=== PATIENT | male | born 1955 | race Caucasian/White ===

== ENCOUNTER → 2019-08-03 | Outpatient (CLI) | payer OTHER ==
[~2019-08-03] MED LIST: ABAT250V; AMIT50 PO; ASPI81CH; CALMAGZIN; CEPH500 PO; CIPR500; CIPR500 PO; CYAN1000 PO; DOCU100 PO; GABA300 PO; GLIM2 PO; GLUCOSAMINE/CHOND; Glucosamine-Ch1 EAC2 PO; Hytrin1 MG PO; Keflex500 MG PO; LEVSOD50 PO; LISI20 PO; LISI5 PO; LOSA25; METF500; METF500 PO; Milk Thistle175 MG PO; Norco 5-325 Ta1 EACH; OXYC5; OXYC5 PO; Percocet 5-3251 EACH PO; SULTRIDS PO; TERA5; TERA5 PO
== END | disposition home or self-care (01) ==
LOC: LAB SHORT 14:05 → LAB 14:05
DX: L03.90 Cellulitis, unspecified (principal)
CPT/HCPCS: 87070; 87077; 87147; 87186; 87205

== ENCOUNTER → 2019-10-30 | Outpatient (CLI) | payer OTHER | END | disposition home or self-care (01) | LOC: LAB SHORT 14:45 → PLD 14:45 | DX: E11.621 Type 2 diabetes mellitus with foot ulcer (principal); L97.519 Non-pressure chronic ulcer of other part of right foot with unspecified severity; E11.42 Type 2 diabetes mellitus with diabetic polyneuropathy; L08.9 Local infection of the skin and subcutaneous tissue, unspecified | CPT/HCPCS: 88305; 88311 ==

== ENCOUNTER 2020-08-21 12:40 | Emergency (ER) | payer OTHER ==
[~2020-08-21] VITALS: Ht 182.9 cm; Wt 79.4 kg
[2020-08-21 14:10] LABS: BASOPHILS ABSOLUTE AUTO 0.05 K/mm3 (0.00-0.23); BASOPHILS PERCENT AUTO 1 % (0-2); EOSINOPHILS ABSOLUTE AUTO 0.05 K/mm3 (0.00-0.68); EOSINOPHILS PERCENT AUTO 1 % (0-6); Hematocrit 44.4 % (37.0-53.0); IMMATURE GRAN ABSOLUTE AUTO 0.05 K/mm3 (0.00-0.10); IMMATURE GRAN PERCENT AUTO 1 % (0-1); LYMPHOCYTES ABSOLUTE AUTO 1.41 K/mm3 (0.84-5.20); LYMPHOCYTES PERCENT AUTO 13 % (21-46); MONOCYTES ABSOLUTE AUTO 0.65 K/mm3 (0.16-1.47); MONOCYTES PERCENT AUTO 6 % (4-13); Mean Corpuscular HGB Conc 33.8 g/dL (31.5-36.5); Mean Corpuscular Volume 92 fL (80-100); Mean Platelet Volume 11.4 fL (9.1-12.4); NEUTROPHILS ABSOLUTE AUTO 8.66 K/mm3 (1.96-9.15); NEUTROPHILS PERCENT AUTO 80 % (41-73); RDW Coefficient Variation 12.4 % (11.7-14.2); RDW Standard Deviation 42.2 fL (35.1-46.3); Red Blood Cell Count 4.84 M/mm3 (4.30-5.90); White Blood Cell Count 10.87 K/mm3 (4.00-11.30)
[2020-08-21 14:14] LABS: Alanine Aminotransfer (ALT/SGP 24 U/L (12-78); Albumin, Blood 4.3 g/dL (3.4-5.0); Albumin/Globulin Ratio 0.9 (0.8-1.8); Alk Phos 80 U/L (50-136); Anion Gap 7 mmol/L (6-16); Aspartate Aminotrans (AST/SGOT 22 U/L (12-37); Bilirubin, Total 0.6 mg/dL (0.1-1.0); Blood Urea Nitrogen 22 mg/dL (8-24); Bun/Creatinine Ratio 20.4 (12.0-20.0); CO2, Blood 26 mmol/L (21-32); Calcium, Blood 9.7 mg/dL (8.5-10.1); Chloride, Blood 99 mmol/L (98-108); Creatinine, Blood 1.08 mg/dL (0.60-1.20); Globulin, Blood 4.6 g/dL (2.2-4.0); Glomerular Filtration Rate >60 (60-); Glucose, Blood 199 mg/dL (70-99); Potassium, Blood 4.8 mmol/L (3.5-5.5); Sodium, Blood 132 mmol/L (136-145); Total Protein, Blood 8.9 g/dL (6.4-8.2); Troponin I <0.015 ng/mL (0.000-0.040)
[2020-08-21 14:30] LABS: Platelet Count 125 K/mm3 (150-400)
[2020-08-21 17:08] LABS: Source, Urine Voided
[2020-08-21 17:12] LABS: Bilirubin, Urine Neg (Neg); Blood, Urine 1+ (Neg); Glucose Qualitative, Urine 1+ (Neg); Ketones, Urine 1+ (Neg); Leukocyte Esterase, Urine Neg (Neg); Nitrite, Urine Neg (Neg); Protein, Urine 3+ (Neg); Specific Gravity, Urine 1.015 (1.003-1.022); Urobilinogen, Urine NORM (Normal)
[2020-08-21 17:19] LABS: Appearance, Urine Clear (Clear); Color, Urine Yellow (P-Yellow)
[2020-08-21 17:20] LABS: Red Blood Cells, Urine 0-2 /hpf (0-2); White Blood Cells, Urine 0-2 /hpf (0-5)
[2020-08-21 17:21] LABS: Bacteria Few /hpf; Squamous Epithelial Cells Not Seen /hpf (Few)
== END 2020-08-21 17:30 | disposition home or self-care (01) ==
LOC: ER 12:40
PROVIDERS: Emergency Medicine
DX: B34.9 Viral infection, unspecified (principal); Z79.84 Long term (current) use of oral hypoglycemic drugs; Z79.899 Other long term (current) drug therapy
CPT/HCPCS: 36415; 70450; 71045; 80053; 81001; 83690; 84484; 85025; 93005; 93010; 96360; 96361; 99284-25; A9270; J7030

== ENCOUNTER 2020-08-30 17:26 | Emergency (ER) | payer OTHER ==
[~2020-08-30] VITALS: Ht 182.9 cm; Wt 79.4 kg
[2020-08-30 19:21] LABS: BASOPHILS ABSOLUTE AUTO 0.07 K/mm3 (0.00-0.23); BASOPHILS PERCENT AUTO 1 % (0-2); EOSINOPHILS ABSOLUTE AUTO 0.33 K/mm3 (0.00-0.68); EOSINOPHILS PERCENT AUTO 3 % (0-6); Hematocrit 41.2 % (37.0-53.0); Hemoglobin 13.8 g/dL (13.5-17.5); IMMATURE GRAN ABSOLUTE AUTO 0.06 K/mm3 (0.00-0.10); IMMATURE GRAN PERCENT AUTO 1 % (0-1); LYMPHOCYTES ABSOLUTE AUTO 2.26 K/mm3 (0.84-5.20); LYMPHOCYTES PERCENT AUTO 22 % (21-46); MONOCYTES PERCENT AUTO 6 % (4-13); Mean Corpuscular HGB 30.9 pg (26.0-34.0); Mean Corpuscular HGB Conc 33.5 g/dL (31.5-36.5); Mean Corpuscular Volume 92 fL (80-100); Mean Platelet Volume 10.2 fL (9.1-12.4); NEUTROPHILS ABSOLUTE AUTO 7.01 K/mm3 (1.96-9.15); NEUTROPHILS PERCENT AUTO 68 % (41-73); Platelet Count 224 K/mm3 (150-400); RDW Coefficient Variation 12.4 % (11.7-14.2); RDW Standard Deviation 42.4 fL (35.1-46.3); Red Blood Cell Count 4.46 M/mm3 (4.30-5.90); White Blood Cell Count 10.33 K/mm3 (4.00-11.30)
[2020-08-30 19:41] LABS: Alanine Aminotransfer (ALT/SGP 16 U/L (12-78); Albumin, Blood 4.2 g/dL (3.4-5.0); Alk Phos 83 U/L (50-136); Anion Gap 5 mmol/L (6-16); Aspartate Aminotrans (AST/SGOT 14 U/L (12-37); Bilirubin, Total 0.4 mg/dL (0.1-1.0); Blood Urea Nitrogen 21 mg/dL (8-24); Bun/Creatinine Ratio 18.6 (12.0-20.0); CO2, Blood 29 mmol/L (21-32); Calcium, Blood 9.8 mg/dL (8.5-10.1); Chloride, Blood 103 mmol/L (98-108); Creatinine, Blood 1.13 mg/dL (0.60-1.20); Globulin, Blood 4.2 g/dL (2.2-4.0); Glomerular Filtration Rate >60 (60-); Glucose, Blood 121 mg/dL (70-99); Potassium, Blood 4.4 mmol/L (3.5-5.5); Sodium, Blood 137 mmol/L (136-145); Total Protein, Blood 8.4 g/dL (6.4-8.2)
[2020-08-30] MEDS ORDERED: EUTHYROX100 MC1 PO (21:00)
[2020-08-30] MEDS ORDERED: METFORMIN HCL500 M3 PO (21:00)
== END 2020-08-30 21:33 | disposition home or self-care (01) ==
LOC: ER 17:26
PROVIDERS: Physician Assistant
DX: R51.9 Headache, unspecified (principal); Z79.84 Long term (current) use of oral hypoglycemic drugs; Z79.82 Long term (current) use of aspirin; Z79.899 Other long term (current) drug therapy
CPT/HCPCS: 70553; 80053; 85025; 93005; 93010; 99284-25; A9270; A9579

== ENCOUNTER 2022-07-02 08:13 | Day surgery (SDC) | payer OTHER ==
[~2022-07-02] VITALS: Ht 182.9 cm; Wt 84.8 kg
[~2022-07-02 08:13] MED LIST changes: +EUTHYROX100 MC1 PO; +GLIP5 PO; +LOSA25 PO; +METFORMIN HCL500 M3 PO; +METO25ER PO; +PRAV20 PO
--- NOTE | 2022-07-02 11:46 | NUR ---
PT TO RECOVERY ROOM FROM LAB. PT A&Ox4. REPEAT VS. PT PLACED ON BUSINESS SERVICES CLERK. WRIST SITE SOFT AND NON-TENDER. NO BLEEDING NOTED. 10 IN TR BAND.
--- NOTE | 2022-07-02 11:59 | NUR ---
PT GIVE LUNCH TRAY. PT SITTING UP IN RECLINER EATING LUNCH. , [place], AT BEDSIDE.
--- NOTE | 2022-07-02 14:36 | NUR ---
PT GIVEN DC INSTRUCTIONS AND VERBALIZED UNDERSTANDING. IV OUT. PT CHANGED INTO CLOTHES. DRESSING APPLIED TO WRIST. ARM BOARD PLACED ALONG WITH SLING. PT AMBULATED TO [facility] W/ . TO DRIVE PT HOME.
== END 2022-07-02 14:10 | disposition home or self-care (01) ==
LOC: MHTC 08:13
DX: I25.118 Atherosclerotic heart disease of native coronary artery with other forms of angina pectoris (principal); R93.89 Abnormal findings on diagnostic imaging of other specified body structures; I10 Essential (primary) hypertension; E78.5 Hyperlipidemia, unspecified; E11.9 Type 2 diabetes mellitus without complications; E03.9 Hypothyroidism, unspecified; Z85.46 Personal history of malignant neoplasm of prostate; Z79.82 Long term (current) use of aspirin; R06.02 Shortness of breath
CPT/HCPCS: 76937; 85347; 93454; 93571; 99152; 99153; A9270; C1725; C1769; C1874; C1887; C1894; C9600; J1644; J2250; J3010; J7030; J7050; Q9967

== ENCOUNTER 2023-11-05 09:42 | Emergency (ER) | payer OTHER ==
[~2023-11-05] VITALS: Ht 185.4 cm; Wt 74.8 kg
[~2023-11-05 09:42] MED LIST changes: +JARDIANCE10 MG
[2023-11-05 10:49] LABS: BASOPHILS ABSOLUTE AUTO 0.07 K/mm3 (0.00-0.23); BASOPHILS PERCENT AUTO 1 % (0-2); EOSINOPHILS ABSOLUTE AUTO 0.25 K/mm3 (0.00-0.68); EOSINOPHILS PERCENT AUTO 2 % (0-6); Hemoglobin 15.5 g/dL (13.5-17.5); IMMATURE GRAN ABSOLUTE AUTO 0.03 K/mm3 (0.00-0.10); IMMATURE GRAN PERCENT AUTO 0 % (0-1); LYMPHOCYTES ABSOLUTE AUTO 2.58 K/mm3 (0.84-5.20); LYMPHOCYTES PERCENT AUTO 22 % (21-46); MONOCYTES ABSOLUTE AUTO 0.89 K/mm3 (0.16-1.47); MONOCYTES PERCENT AUTO 8 % (4-13); Mean Corpuscular HGB 31.1 pg (26.0-34.0); Mean Corpuscular HGB Conc 34.4 g/dL (31.5-36.5); Mean Corpuscular Volume 90 fL (80-100); Mean Platelet Volume 10.2 fL (9.1-12.4); NEUTROPHILS ABSOLUTE AUTO 7.68 K/mm3 (1.96-9.15); NEUTROPHILS PERCENT AUTO 67 % (41-73); Platelet Count 265 K/mm3 (150-400); RDW Coefficient Variation 12.7 % (11.7-14.2); RDW Standard Deviation 41.4 fL (35.1-46.3); Red Blood Cell Count 4.99 M/mm3 (4.30-5.90)
[2023-11-05 11:15] LABS: Albumin, Blood 4.1 g/dL (3.4-5.0); Albumin/Globulin Ratio 0.8 (0.8-1.8); Bilirubin, Total 0.5 mg/dL (0.1-1.0); Bun/Creatinine Ratio 17.7 (12.0-20.0); Calcium, Blood 10.2 mg/dL (8.5-10.1); Creatinine, Blood 1.13 mg/dL (0.60-1.20); Globulin, Blood 4.9 g/dL (2.2-4.0); Potassium, Blood 4.1 mmol/L (3.5-5.5)
[2023-11-05 12:43] VITALS: BP 159/81
[2023-11-05] MEDS ORDERED: OMEP20ER PO (13:08)
[2023-11-05] MEDS ORDERED: SUCR1 PO (13:08)
== END 2023-11-05 13:17 | disposition home or self-care (01) ==
LOC: ER 09:42
PROVIDERS: Student in an Organized Health Care Education/Training Program
DX: R10.13 Epigastric pain (principal); E11.40 Type 2 diabetes mellitus with diabetic neuropathy, unspecified; Z79.84 Long term (current) use of oral hypoglycemic drugs; Z79.899 Other long term (current) drug therapy
CPT/HCPCS: 71046; 74178; 80053; 83690; 84484; 85025; 93005; 93010; 96374-59; 99284-25; A9270; C9113; Q9967

== ENCOUNTER → 2023-11-09 | Outpatient (CLI) | payer OTHER ==
[~2023-11-09] MED LIST changes: +OMEP20ER PO; +SUCR1 PO
== END ==
LOC: LAB SHORT 07:30 → LAB 07:30
DX: R10.84 Generalized abdominal pain (principal)
CPT/HCPCS: 87338

== ENCOUNTER → 2023-12-10 | Outpatient (CLI) | payer OTHER | END | disposition home or self-care (01) | LOC: LAB SHORT 11:12 → LAB 11:12 | DX: L97.519 Non-pressure chronic ulcer of other part of right foot with unspecified severity (principal) | CPT/HCPCS: 87070; 87075; 87077; 87186; 87205 ==

== ENCOUNTER 2023-12-23 11:07 | Day surgery (SDC) | payer OTHER ==
[2023-12-23] VITALS (8 sets, daily range): BP systolic 134–180; BP diastolic 70–87
[~2023-12-23] VITALS: Ht 182.9 cm; Wt 75.8 kg
[~2023-12-23 11:07] MED LIST changes: +CILO100 PO; +Crestor20 MG PO; +DICLOFENAC SOD100 GM TP; -JARDIANCE10 MG; +JARDIANCE25 MG PO; +NITR.4SL SL; +SILVADENE20 G8 TOP
[2023-12-23] MEDS ORDERED: Heparin Sodium 1000 Units/ML 10ML MDV ONE ×3 (12:20→12:48)
[2023-12-23] MEDS ORDERED: NS 250 ML IV ONE (12:20)
[2023-12-23] MEDS ORDERED: NS 1,000 ML IV ONE ×2 (12:20→12:48)
[2023-12-23] MEDS ORDERED: Nitroglycerin 2 MG/20 ML BTL ONE (12:22)
[2023-12-23] MEDS ORDERED: Midazolam HCl 1MG / ML 2ML Vial ONE (12:56)
[2023-12-23] MEDS ORDERED: FentaNYL Citrate 50 MCG/ML 2 ML Injection ONE ×2 (12:56→13:38)
--- NOTE | 2023-12-23 14:30 | NUR ---
pt returns from lab to recover room. supine in bed, pt alert and oriented. anigoseal to right groin. site soft, non tender, no hematoma no oozing. pt reports R leg feels "better already" vss. call light in reach. refreshments offered.
--- NOTE | 2023-12-23 15:00 | NUR ---
HOB ELEVATED 30 DEGREES. L GROIN SITE C/D/I SOFT/NONTENDER, NO EVIDENCE OF BLEEDING. PATIENT TOLERATING PO INTAKE WELL. VSS ON RA
--- NOTE | 2023-12-23 16:52 | NUR ---
discharge instructions reviewed with pt and pt . no further questions, no changes to medications. pt vss upon discharge, iv removed cathter intact. pt. up to get self dressed. site checked after pt was dressed and remains unchanged from previous assessments. pt. ambulates to the bathroom without difficulty and able to get self dressed.left groin Site checked prior to departure. vss upon dsicharge. pt taken to exit via wheelchair, pt to drive pt home.
== END 2023-12-23 16:50 | disposition home or self-care (01) ==
LOC: MHTC 11:07
PROC: 047K3ZZ Dilation of Right Femoral Artery, Percutaneous Approach (ICD-10-PCS; principal; 2023-12-23)
PROC: 047M3ZZ Dilation of Right Popliteal Artery, Percutaneous Approach (ICD-10-PCS; principal; 2023-12-23)
PROC: 04CK3ZZ Extirpation of Matter from Right Femoral Artery, Percutaneous Approach (ICD-10-PCS; principal; 2023-12-23)
PROC: 04CM3ZZ Extirpation of Matter from Right Popliteal Artery, Percutaneous Approach (ICD-10-PCS; principal; 2023-12-23)
DX: E11.51 Type 2 diabetes mellitus with diabetic peripheral angiopathy without gangrene (principal); M48.061 Spinal stenosis, lumbar region without neurogenic claudication; I10 Essential (primary) hypertension; E11.42 Type 2 diabetes mellitus with diabetic polyneuropathy; I25.10 Atherosclerotic heart disease of native coronary artery without angina pectoris; E78.5 Hyperlipidemia, unspecified; E03.9 Hypothyroidism, unspecified; Z95.5 Presence of coronary angioplasty implant and graft; Z87.891 Personal history of nicotine dependence; Z88.8 Allergy status to other drugs, medicaments and biological substances; Z79.82 Long term (current) use of aspirin; Z79.84 Long term (current) use of oral hypoglycemic drugs; Z79.890 Hormone replacement therapy; Z79.899 Other long term (current) drug therapy
CPT/HCPCS: 76937; 99152; 99153; C1714; C1725; C1760; C1769; C1884; C1887; C1894; C2623; J1644; J2250; J3010; J7030; J7050; Q9967

== ENCOUNTER 2024-06-27 09:58 | Day surgery (SDC) | payer OTHER ==
[~2024-06-27] VITALS: Ht 182.9 cm; Wt 71.7 kg
[~2024-06-27 09:58] MED LIST changes: +Glycopyrrolate 0.2 MG/ML 1MLVIAL ONE; +Lactated Ringer's 1,000 ML IV ONE; +Lidocaine 2% 5 ML SDV ONE; +Lidocaine HCl/Pf 1% 5 ML VIAL ONE; +Methylene Blue 1% 100 MG/10 ML VIAL ONE; +Ondansetron HCl 2 MG / ML 2ML Vial ONE; +ePHEDrine Sulfate 50 MG/ML 1ML Injection ONE; +propofoL 50 ML IV ONE
[2024-06-27] MEDS ORDERED: Lactated Ringer's 1,000 ML IV ONE (10:33)
--- NOTE | 2024-06-27 10:53 | NUR ---
06/27/24 1053 Mayuri Ríos WHEN ASKED PT. IF HE HAD ANY PAIN, PT. STATES "ALWAYS IN PAIN, MY BACK, MY LEGS, I HAVE NEUROPATHY." PT. RATES HIS PAIN "4". STATES "NOT TOO BAD." PT. SMOKES MARIJUANA MULITIPLE TIMES DURING THE DAY FOR HIS PAIN.
--- NOTE | 2024-06-27 11:09 | NUR ---
06/27/24 1109 Mayuri Ríos PT. WITH JOSE CARLOS WHEN HOOKED UP TO MONITOR, DR. ASHRAF AWARE, NO ORDERS GIVEN.
[2024-06-27] MEDS ORDERED: propofoL 50 ML IV ONE (11:42)
--- NOTE | 2024-06-27 14:22 | NUR ---
06/27/24 1422 Mayuri Ríos PT. CONTINUES TO DENY A SORETHROAT. PT. LUNGS CLEAR WITH SATS 96% ON RA. PT. COUGHING OFF & ON. PT. DOES CONTINUE TO VERBALIZE THAT HIS SINUSES ARE CONGESTED. PT. AT FIRST SAID THAT HE COULDN'T HAVE ANYTHING COME OUT WITH BLOWING HIS NOSE BUT THEN HE WAS ABLE TO.
[2024-06-27 14:26] VITALS: BP 178/88
[2024-06-27] MEDS ORDERED: ROSUVASTATIN CA40 MG PO ×2 (21:44)
[2024-06-28] MEDS ORDERED: TICA90TA PO ×2 (15:11)
== END 2024-06-27 12:42 | disposition home or self-care (01) ==
LOC: ORSCSDS 09:58
PROVIDERS: Internal Medicine Gastroenterology
PROC: 0DBL8ZX Excision of Transverse Colon, Via Natural or Artificial Opening Endoscopic, Diagnostic (ICD-10-PCS; principal; 2024-06-27 11:15)
PROC: 0DBM8ZX Excision of Descending Colon, Via Natural or Artificial Opening Endoscopic, Diagnostic (ICD-10-PCS; principal; 2024-06-27 11:15)
PROC: 0DBK8ZX Excision of Ascending Colon, Via Natural or Artificial Opening Endoscopic, Diagnostic (ICD-10-PCS; principal; 2024-06-27 11:15)
DX: Z12.11 Encounter for screening for malignant neoplasm of colon (principal); Z86.010 Personal history of colon polyps; D12.3 Benign neoplasm of transverse colon; D12.2 Benign neoplasm of ascending colon; D12.4 Benign neoplasm of descending colon; K57.30 Diverticulosis of large intestine without perforation or abscess without bleeding; K64.4 Residual hemorrhoidal skin tags; K74.60 Unspecified cirrhosis of liver; I25.10 Atherosclerotic heart disease of native coronary artery without angina pectoris; E11.42 Type 2 diabetes mellitus with diabetic polyneuropathy; Z86.19 Personal history of other infectious and parasitic diseases; Z79.82 Long term (current) use of aspirin; Z79.899 Other long term (current) drug therapy; E03.9 Hypothyroidism, unspecified; I10 Essential (primary) hypertension; E78.5 Hyperlipidemia, unspecified; Z85.46 Personal history of malignant neoplasm of prostate; Z87.891 Personal history of nicotine dependence
CPT/HCPCS: 82947; 88305; J2001; J2405; J2704; J7120; Q9968

== ENCOUNTER 2024-06-27 20:36 | Observation (INO) | payer OTHER ==
[~2024-06-27] VITALS: Ht 182.9 cm; Wt 72.0 kg
[~2024-06-27 20:36] MED LIST changes: -Glycopyrrolate 0.2 MG/ML 1MLVIAL ONE; -Lactated Ringer's 1,000 ML IV ONE; -Lidocaine 2% 5 ML SDV ONE; -Lidocaine HCl/Pf 1% 5 ML VIAL ONE; -Methylene Blue 1% 100 MG/10 ML VIAL ONE; -Ondansetron HCl 2 MG / ML 2ML Vial ONE; -ePHEDrine Sulfate 50 MG/ML 1ML Injection ONE; -propofoL 50 ML IV ONE
[2024-06-27 21:38] LABS: BASOPHILS ABSOLUTE AUTO 0.07 K/mm3 (0.00-0.23); BASOPHILS PERCENT AUTO 0 % (0-2); EOSINOPHILS ABSOLUTE AUTO 0.03 K/mm3 (0.00-0.68); EOSINOPHILS PERCENT AUTO 0 % (0-6); Hematocrit 41.4 % (37.0-53.0); Hemoglobin 14.1 g/dL (13.5-17.5); IMMATURE GRAN ABSOLUTE AUTO 0.05 K/mm3 (0.00-0.10); IMMATURE GRAN PERCENT AUTO 0 % (0-1); LYMPHOCYTES ABSOLUTE AUTO 1.76 K/mm3 (0.84-5.20); LYMPHOCYTES PERCENT AUTO 10 % (21-46); MONOCYTES ABSOLUTE AUTO 1.06 K/mm3 (0.16-1.47); MONOCYTES PERCENT AUTO 6 % (4-13); Mean Corpuscular HGB Conc 34.1 g/dL (31.5-36.5); Mean Corpuscular Volume 94 fL (80-100); Mean Platelet Volume 10.3 fL (9.1-12.4); NEUTROPHILS ABSOLUTE AUTO 14.17 K/mm3 (1.96-9.15); NEUTROPHILS PERCENT AUTO 83 % (41-73); Platelet Count 188 K/mm3 (150-400); RDW Coefficient Variation 12.2 % (11.7-14.2); RDW Standard Deviation 42.7 fL (35.1-46.3); White Blood Cell Count 17.14 K/mm3 (4.00-11.30)
[2024-06-27] MEDS ORDERED: ROSUVASTATIN CA40 MG PO (21:44)
[2024-06-27 21:56] LABS: Bun/Creatinine Ratio 14.3 (12.0-20.0); Creatinine, Blood 1.12 mg/dL (0.60-1.20); Globulin, Blood 4.1 g/dL (2.2-4.0); Potassium, Blood 4.3 mmol/L (3.5-5.5); Total Protein, Blood 8.1 g/dL (6.4-8.2)
[2024-06-27] MEDS ORDERED: Aspirin 81 MG Chew PO ONE (22:35)
[2024-06-27] MEDS ORDERED: Ofloxacin 0.3% Otic Soln 5 ML BOTHEARS ONE (22:40)
[2024-06-27] MEDS ORDERED: Heparin Sodium,Porcine/0.5 NS 500 ML IV SCH (23:15)
[2024-06-27 23:17] LABS: Anti-Xa UFH, PHA Monitoring <0.10 IU/mL; International Normalized Ratio 1.02; Prothrombin Time Results 10.9 Sec (9.7-11.5)
[2024-06-28] VITALS (7 sets, daily range): BP systolic 136–169; BP diastolic 64–91
[2024-06-28 02:14] LABS: BASOPHILS ABSOLUTE AUTO 0.06 K/mm3 (0.00-0.23); BASOPHILS PERCENT AUTO 0 % (0-2); EOSINOPHILS ABSOLUTE AUTO 0.06 K/mm3 (0.00-0.68); EOSINOPHILS PERCENT AUTO 0 % (0-6); Hematocrit 38.9 % (37.0-53.0); Hemoglobin 13.1 g/dL (13.5-17.5); IMMATURE GRAN ABSOLUTE AUTO 0.04 K/mm3 (0.00-0.10); IMMATURE GRAN PERCENT AUTO 0 % (0-1); LYMPHOCYTES ABSOLUTE AUTO 1.89 K/mm3 (0.84-5.20); LYMPHOCYTES PERCENT AUTO 13 % (21-46); MONOCYTES ABSOLUTE AUTO 0.97 K/mm3 (0.16-1.47); MONOCYTES PERCENT AUTO 7 % (4-13); Mean Corpuscular HGB 31.6 pg (26.0-34.0); Mean Corpuscular HGB Conc 33.7 g/dL (31.5-36.5); Mean Corpuscular Volume 94 fL (80-100); Mean Platelet Volume 10.7 fL (9.1-12.4); NEUTROPHILS ABSOLUTE AUTO 11.53 K/mm3 (1.96-9.15); NEUTROPHILS PERCENT AUTO 79 % (41-73); Platelet Count 180 K/mm3 (150-400); RDW Coefficient Variation 12.3 % (11.7-14.2); RDW Standard Deviation 42.6 fL (35.1-46.3); Red Blood Cell Count 4.15 M/mm3 (4.30-5.90); White Blood Cell Count 14.55 K/mm3 (4.00-11.30)
[2024-06-28 02:16] LABS: Alanine Aminotransfer (ALT/SGP 17 U/L (12-78); Albumin, Blood 3.7 g/dL (3.4-5.0); Alk Phos 64 U/L (50-136); Anion Gap 20 mmol/L (3-11); Aspartate Aminotrans (AST/SGOT 20 U/L (12-37); Bilirubin, Total 0.8 mg/dL (0.1-1.0); Blood Urea Nitrogen 17 mg/dL (8-24); Bun/Creatinine Ratio 14.2 (12.0-20.0); CHOL/HDL RATIO 1.9; CO2, Blood 18 mmol/L (21-32); Calcium, Blood 8.9 mg/dL (8.5-10.1); Chloride, Blood 103 mmol/L (98-108); Cholesterol 79 mg/dL (50-200); Globulin, Blood 3.7 g/dL (2.2-4.0); Glomerular Filtration Rate 66 (60-); Glucose, Blood 114 mg/dL (70-99); HDL Cholesterol 41 mg/dL (>39); LDL/HDL RATIO 0.7; Low Density Lipoprotein Chol 27 mg/dL (0-110); Potassium, Blood 4.1 mmol/L (3.5-5.5); Sodium, Blood 137 mmol/L (136-145); Total Protein, Blood 7.4 g/dL (6.4-8.2); Triglycerides 55 mg/dL (30-160); Very Low Density Lipoprot Chol 11 mg/dL (6-32)
--- NOTE | 2024-06-28 03:19 | NUR ---
ADMISSION NOTE PT TRANSFERRED FROM ED; A&O4, VSS, AND COOPERATIVE IN ANSWERING ADMISSION QUESTIONS. MED REC NOT COMPLETE DUE TO PT NOT ABLE TO PROVIDE INFO ON MEDS CURRENTLY TAKING. PT STATES HAS A LIST AT HOME AND WILL PROVIDE IT LATER TODAY. PT STATES IS CURRENTLY AT HOME, SLEEPING BECAUSE SHE HAS TO BE AT WORK AT 0500. WILL ATTEMPT COMMUNICATION THEN.
[2024-06-28] MEDS ORDERED: Levothyroxine Sodium 0.1 MG Tab PO SCH (06:00)
[2024-06-28] MEDS ORDERED: NS 1,000 ML IV ONE ×2 (07:12→07:23)
[2024-06-28] MEDS ORDERED: Verapamil HCL 2.5 MG/ML 2ML Injection ONE (07:12)
[2024-06-28] MEDS ORDERED: Heparin Sodium 1000 Units/ML 10ML MDV ONE ×2 (07:12→07:33)
[2024-06-28] MEDS ORDERED: Nitroglycerin 2 MG/20 ML BTL ONE (07:12)
[2024-06-28] MEDS ORDERED: NS 250 ML IV ONE (07:12)
[2024-06-28] MEDS ORDERED: FentaNYL Citrate 50 MCG/ML 2 ML Injection ONE (07:22)
[2024-06-28] MEDS ORDERED: Midazolam HCl 1MG / ML 2ML Vial ONE (07:23)
--- NOTE | 2024-06-28 07:37 | NUR ---
Pt went to laborer chees[facility] approx 0715; Notified pharmacy that heparin gtt was turned off.
[2024-06-28] MEDS ORDERED: Ticagrelor 90 MG TABLET ONE (08:14)
[2024-06-28] MEDS ORDERED: Metoprolol Succinate 25 MG TABCR PO SCH ×2 (09:00)
[2024-06-28] MEDS ORDERED: Empagliflozin 25 MG TAB PO SCH (09:00)
[2024-06-28] MEDS ORDERED: Losartan Potassium 25 MG Tab PO SCH (09:00)
[2024-06-28] MEDS ORDERED: Rosuvastatin Calcium 10 MG Tab PO SCH (09:00)
[2024-06-28] MEDS ORDERED: Aspirin 81 MG Chew PO SCH (09:00)
--- NOTE | 2024-06-28 10:51 | NUR ---
Echo in progress.
--- NOTE | 2024-06-28 11:48 | NUR ---
2 CC AIR removed from the band. The site is [facility]. Pt denies any symptoms. He has not been very hungry. Ate only half his late breakfast, declined lunch.
--- NOTE | 2024-06-28 12:32 | NUR ---
TR band is fully deflated. Site is WNL.
[2024-06-28] MEDS ORDERED: TICA90TA PO (15:11)
--- NOTE | 2024-06-28 15:39 | NUR ---
Discharge instructions were reviewed with the patient, and questions answered. Prescriptions were faxed to [facility]. Pt received Brilinta samples #8 were given to him, as well as coupons for reduced cost. Telemetry was removed, and IV removed. He is getting dressed and his will be here to pick him up shortly. His grandson is in the room with him, waiting.
[2024-06-29] MEDS ORDERED: Losartan Potassium 25 MG Tab PO SCH (09:00)
[2024-06-29] MEDS ORDERED: Metoprolol Succinate 25 MG TABCR PO SCH (09:00)
== END 2024-06-28 15:52 | disposition home or self-care (01) ==
LOC: ER 20:36 → PCU 20:37 → ERHOLD 20:37 → PCU 06-28 02:13
PROVIDERS: Emergency Medicine; Family Medicine; Student in an Organized Health Care Education/Training Program; ADMIT Internal Medicine
DX: I21.4 Non-ST elevation (NSTEMI) myocardial infarction (principal); I25.10 Atherosclerotic heart disease of native coronary artery without angina pectoris; I24.9 Acute ischemic heart disease, unspecified; D72.829 Elevated white blood cell count, unspecified; E87.20 Acidosis, unspecified; B19.20 Unspecified viral hepatitis C without hepatic coma; E11.40 Type 2 diabetes mellitus with diabetic neuropathy, unspecified; Z95.5 Presence of coronary angioplasty implant and graft; I10 Essential (primary) hypertension; E78.5 Hyperlipidemia, unspecified; E03.9 Hypothyroidism, unspecified; Z88.8 Allergy status to other drugs, medicaments and biological substances; Z79.82 Long term (current) use of aspirin; Z79.890 Hormone replacement therapy; Z79.84 Long term (current) use of oral hypoglycemic drugs; Z79.899 Other long term (current) drug therapy; Z12.11 Encounter for screening for malignant neoplasm of colon; Z86.010 Personal history of colon polyps; D12.3 Benign neoplasm of transverse colon; D12.2 Benign neoplasm of ascending colon; D12.4 Benign neoplasm of descending colon; K57.30 Diverticulosis of large intestine without perforation or abscess without bleeding; K64.4 Residual hemorrhoidal skin tags; K74.60 Unspecified cirrhosis of liver; E11.42 Type 2 diabetes mellitus with diabetic polyneuropathy; Z86.19 Personal history of other infectious and parasitic diseases; Z85.46 Personal history of malignant neoplasm of prostate; Z87.891 Personal history of nicotine dependence
CPT/HCPCS: 36415; 71045; 76937; 80053; 80061; 82947; 83036; 84443; 84484; 85025; 85347; 85520; 85610; 88305; 92978; 93005; 93010; 93306; 93454; 93571; 96365; 96366; 96374; 99152; 99153; 99285-25; A9270; C1725; C1753; C1769; C1874; C1887; C1894; C9600; G0378; J1644; J2001; J2250; J2405; J2704; J3010; J7030; J7050; J7120; Q9967; Q9968